=== PATIENT | female | born 1980 | race Caucasian/White ===

== ENCOUNTER 2017-03-25 12:08 | Emergency (ER) | payer OTHER | END 2017-03-25 13:57 | disposition left against medical advice (07) | LOC: UCEAST 12:08 | DX: M25.559 Pain in unspecified hip (principal); Z53.21 Procedure and treatment not carried out due to patient leaving prior to being seen by health care provider ==

== ENCOUNTER 2017-04-10 09:52 | Emergency (ER) | payer OTHER ==
[2017-04-10 11:48] VITALS: BP 124/84
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
[2017-04-10] MEDS ORDERED: Ketorolac INJ* 60 MG/2 ML VIAL IM ONE (13:16)
--- NOTE | 2017-04-10 13:40 | RAD ---
INDICATION: Chronic back pain. COMPARISON: Comparison is made with a prior study from November 06, 2016. TECHNIQUE: 5 views of the lumbar spine were obtained including lateral, oblique, AP and a coned-down lateral view of the lumbar sacral junction. FINDINGS: The vertebra are in normal alignment. No fracture is seen. Disc spaces appear maintained. There are calcific densities which project over the lower pole of the left kidney measuring up to 4 mm in size suspicious for renal calculi. IMPRESSION: 1. NEGATIVE EXAM OF THE LUMBAR SPINE. 2. PROBABLE SMALL LEFT RENAL CALCULI.
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
== END 2017-04-10 14:32 | disposition home or self-care (01) ==
LOC: UCEAST 09:52
DX: M16.11 Unilateral primary osteoarthritis, right hip (principal); S39.012S Strain of muscle, fascia and tendon of lower back, sequela; X58.XXXS Exposure to other specified factors, sequela; Z87.891 Personal history of nicotine dependence
CPT/HCPCS: 72110; 96372; 99212; G0463; J1885

== ENCOUNTER 2017-08-21 17:59 | Emergency (ER) | payer OTHER ==
[2017-08-21 18:36] VITALS: BP 140/75
[2017-08-21] MEDS ORDERED: Ketorolac INJ* 60 MG/2 ML VIAL IM ONE (20:06)
--- NOTE | 2017-08-21 21:00 | RAD ---
Indication: Left rib pain. 3 views of left ribs as well as dual energy PA views of the chest demonstrate no fracture. No evidence of pneumothorax is noted. No alveolar consolidation is noted. No pleural fluid is identified. IMPRESSION: No fracture of the left ribs is noted. No pneumothorax is noted.
--- NOTE | 2017-08-21 22:10 | UC ---
Truncal Trauma HPI - HPI Summary HPI Summary: 1) LEFT LOWER RIB PAIN FOR THREE DAYS. NO BRUISING, NO SOB. NO KNOWN INJURY. NO RADIATION. 2) WHILE WAITING IN WAITING ROOM, MIGRAINE FLAIRED UP. - History Of Current Complaint Chief Complaint: UCRespiratory Stated Complaint: RIB PAIN Time Seen by Provider: 08/21/17 19:48 Hx Obtained From: Patient Hx Last Menstrual Period: IMPLANON Onset/Duration: Gradual Onset, Lasting Days, Still Present Severity Initially: Mild Severity Currently: Mild Pain Intensity: 3 Pain Scale Used: 0-10 Numeric Mechanism Of Injury: Unknown Aggravating Factor(s): Movement, Deep Breathing, Cough Alleviating factor(s): Nothing Associated Signs And Symptoms: Positive: Negative - Allergies/Home Medications Allergies/Adverse Reactions: Allergies Allergy/AdvReac Type Severity Reaction Status Date / Time No Known Allergies Allergy Verified 08/21/17 18:36 PMH/Surg Hx/FS Hx/Imm Hx Previously Healthy: Yes - Surgical History Surgical History: Yes Surgery Procedure, Year, and Place: x 2 - Family History Known Family History: Positive: Hypertension Negative: Renal Disease - Social History Occupation: Employed Full-time Lives: With Family Alcohol Use: Rare Substance Use Type: None Smoking Status (MU): Former Smoker Type: Cigarettes Amount Used/How Often: 1/2 PPD Length of Time of Smoking/Using Tobacco: 17 YEARS Have You Smoked in the Last Year: No When Did the Patient Quit Smoking/Using Tobacco: 2013 Cessation Counseling: Patient Advised to Stop - Immunization History Most Recent Influenza Vaccination: a few years ago Most Recent Tetanus Shot: UTD Review of Systems Constitutional: Negative Skin: Negative Eyes: Negative ENT: Negative Respiratory: Negative Cardiovascular: Negative Gastrointestinal: Negative Genitourinary: Negative Motor: Negative Neurovascular: Negative Musculoskeletal: Myalgia - LEFT ANTERIOR INFERIOR RIB PAIN; NO ABDOMINAL PAIN Neurological: Negative Psychological: Negative Is Patient Immunocompromised?: No All Other Systems Reviewed And Are Negative: Yes Physical Exam Triage Information Reviewed: Yes Appearance: Well-Appearing, No Pain Distress, Well-Nourished Vital Signs: Initial Vital Signs Temp 97.4 F 08/21/17 18:33 Pulse 87 08/21/17 18:33 Resp 16 08/21/17 18:33 BP 140/75 08/21/17 18:33 Pulse Ox 98 08/21/17 18:33 Vital Signs Reviewed: Yes Eye Exam: Normal ENT Exam: Normal Dental Exam: Normal Neck exam: Normal Neck: Positive: Supple, Nontender, No Lymphadenopathy Respiratory: Positive: Lungs clear, Normal breath sounds, No respiratory distress, No accessory muscle use. Negative: Chest non-tender - LEFT ANTERIOR INFERIOR RIBS TENDER WITH MOVEMENT Cardiovascular Exam: Normal Cardiovascular: Positive: RRR, No Murmur, Pulses Normal, Brisk Capillary Refill Abdominal Exam: Normal Abdomen Description: Positive: Nontender, No Organomegaly, Soft Musculoskeletal: Positive: Strength Intact, ROM Intact, No Edema, Other: - LEFT ANTERIOR INFERIOR RIBS TENDER WITH MOVEMENT Neurological Exam: Normal Psychological Exam: Normal Skin Exam: Normal Truncal Trauma Course/Dx - Course Course Of Treatment: PATEINT ADVISED TO SEEK IMMEDIATE CARE FROM EMERGENCY DEPARTMENT IF CONDITION FAILS TO IMPROVE, OR IF NEW SYMPTOMS DEVELOP - Differential Dx/Diagnosis Differential Diagnosis/HQI/PQRI: Chest Wall Contusion, Spleen Trauma, Rib Fracture, Other - PLEURISY Provider Diagnoses: LEFT ANTERIOR INFERIOR RIBS MUSCLE STRAIN/SPRAIN Discharge - Discharge Plan Condition: Stable Disposition: HOME Patient Education Materials: Migraine Headache (ED), Rib Contusion (ED) Referrals: Bebo Land MD [Primary Care Provider] - Additional Instructions: IF SYMPTOMS REMAIN, CHANGE OR WORSEN PLEASE SEEK PROMPT EVALUATION AT EMERGENCY DEPARTMENT.
== END 2017-08-21 21:21 | disposition home or self-care (01) ==
LOC: UCEAST 17:59
DX: S39.011A Strain of muscle, fascia and tendon of abdomen, initial encounter (principal); Z87.891 Personal history of nicotine dependence; X58.XXXA Exposure to other specified factors, initial encounter; Y92.9 Unspecified place or not applicable
CPT/HCPCS: 96372; 99212; G0463; J1885

== ENCOUNTER 2017-12-19 12:36 | Emergency (ER) | payer OTHER ==
[2017-12-19 13:30] VITALS: BP 122/82
--- NOTE | 2017-12-19 14:00 | UC ---
Back Pain HPI - HPI Summary HPI Summary: Patient presents with complaints of chronic right hip and lower back pain. She was recently seen by Dr. Bliss who RX dilaudid for her pain. She is waiting for prior approval and did not get the medication. She is scheduled to see his again next week. She denies any recent injury, trauma, or new activity that would explain the increase in her pain. She denies incontinence of bowel or bladder, or saddle parasthsia. - History of Current Complaint Chief Complaint: UCBackPain Stated Complaint: HIP AND BACK PAIN Time Seen by Provider: 12/19/17 13:39 Hx Obtained From: Patient Hx Last Menstrual Period: now Onset/Duration: Other - lasting years Timing: Constant Pain Intensity: 7 Character: Aching Aggravating Factor(s): Movement, Lifting, Bending, Walking, Cough Alleviating Factor(s): Nothing Associated Signs And Symptoms: Positive: Negative - Risk Factors AAA Risk Factors: Negative Cauda Equina Risk Factors: Negative Epidural Abscess Risk Factors: Negative - Allergies/Home Medications Allergies/Adverse Reactions: Allergies Allergy/AdvReac Type Severity Reaction Status Date / Time No Known Allergies Allergy Verified 12/19/17 13:31 Home Medications: Home Medications Bupropion XL* [Wellbutrin XL *] 1 tab PO DAILY 12/19/17 [History Confirmed 12/19] Cholecalciferol CAP/TAB(NF) [Vitamin D3 CAP/TAB (NF)] 1 tab PO DAILY 12/19/17 [ History Confirmed 12/19/17] PMH/Surg Hx/FS Hx/Imm Hx Previously Healthy: Yes - Surgical History Surgical History: Yes Surgery Procedure, Year, and Place: x 2 - Family History Known Family History: Positive: Hypertension Negative: Renal Disease - Social History Lives: Alone Alcohol Use: Rare Substance Use Type: None Smoking Status (MU): Former Smoker Type: Cigarettes Amount Used/How Often: 1/2 PPD Length of Time of Smoking/Using Tobacco: 17 YEARS Have You Smoked in the Last Year: No When Did the Patient Quit Smoking/Using Tobacco: 2013 - Immunization History Most Recent Influenza Vaccination: a few years ago Most Recent Tetanus Shot: UTD Review of Systems Constitutional: Negative Skin: Negative Eyes: Negative ENT: Negative Respiratory: Negative Cardiovascular: Negative Gastrointestinal: Negative Genitourinary: Negative Motor: Negative Neurovascular: Negative Musculoskeletal: Myalgia Neurological: Negative Psychological: Negative Is Patient Immunocompromised?: No All Other Systems Reviewed And Are Negative: Yes Physical Exam Triage Information Reviewed: Yes Appearance: Well-Appearing Vital Signs: Initial Vital Signs Temp 96.7 F 12/19/17 13:26 Pulse 81 12/19/17 13:26 Resp 12 12/19/17 13:26 BP 122/82 12/19/17 13:26 Pulse Ox 99 12/19/17 13:26 Vital Signs Reviewed: Yes Eye Exam: Normal ENT Exam: Normal Neck exam: Normal Neck: Positive: 1 Respiratory Exam: Normal Cardiovascular Exam: Normal Abdominal Exam: Normal Musculoskeletal Exam: Normal - palpable pain of the right greater trochanter processess, and right lower lateral lumbar musculature. patellar reflexes 2+ and brisk, negative straight leg raise. gait heel-toe. neuro, no deficits. Neurological Exam: Normal Psychological Exam: Normal Skin Exam: Normal Back Pain Course/Dx - Course Course Of Treatment: Patient presents with history of chronic back pain, she has had no recent injury or trauma, she has been seen by Dr. Bliss and was RX dilaudid. She didnt realize that she could purchase her medications. With no new clinical features concerning for cauda equina syndrome. She was otherwise stable and appropriate for outpatient follow. - Differential Dx/Diagnosis Differential Diagnosis/HQI/PQRI: Other - chronic back pain Provider Diagnoses: chronic back pain Discharge - Discharge Plan Condition: Stable Disposition: HOME Patient Education Materials: Chronic Back Pain (ED) Referrals: Bebo Land MD [Primary Care Provider] - Rashad Bliss DO [Doctor of Osteopathy] - Additional Instructions: You RX is at the pharmacy for hydromorphone at the [facility].
== END 2017-12-19 13:55 | disposition home or self-care (01) ==
LOC: UCEAST 12:36
DX: M54.9 Dorsalgia, unspecified (principal); G89.29 Other chronic pain; Z87.891 Personal history of nicotine dependence
CPT/HCPCS: 99211; G0463

== ENCOUNTER 2018-06-28 20:55 | Emergency (ER) | payer OTHER ==
[2018-06-28 21:15] VITALS: BP 123/84
[2018-06-28] MEDS ORDERED: Amoxicillin PO (*) 500 MG CAP PO ONE (22:08)
--- NOTE | 2018-06-28 22:18 | UC ---
Throat Pain/Nasal Tung HPI - HPI Summary HPI Summary: Patient is a 38-year-old female presenting to the with sore throat. She endorses 2 days of sore throat and bilateral lymphadenopathy. She recently returned from [place] and states she began to feel ill immediately if on arrival. She denies any fevers, sweats, chills. Endorses addendum patient, but denies dysphagia. She continues to eat and drink okay. She denies any other symptoms at this time. She endorses erythema and white spots to her tonsils. History of strep throat. - History of Current Complaint Chief Complaint: UCRespiratory Stated Complaint: SORE THROAT Time Seen by Provider: 06/28/18 21:57 Hx Obtained From: Patient Hx Last Menstrual Period: 06/04/18 ?: No Onset/Duration: Sudden Onset Severity: Moderate Pain Intensity: 6 Pain Scale Used: 0-10 Numeric Associated Signs & Symptoms: Negative: Dysphagia, FB Sensation, Drooling, Wheezing, Hoarseness, Sinus Discomfort - Epiglottits Risk Factors Epiglottis Risk Factors: Negative - Allergies/Home Medications Allergies/Adverse Reactions: Allergies Allergy/AdvReac Type Severity Reaction Status Date / Time No Known Allergies Allergy Verified 06/28/18 21:15 Home Medications: Home Medications Oxycodone HCl 5 mg PO TID PRN 06/28/18 [History Confirmed 06/28/18] PMH/Surg Hx/FS Hx/Imm Hx Previously Healthy: Yes - Surgical History Surgical History: Yes Surgery Procedure, Year, and Place: x 2 - Family History Known Family History: Positive: Hypertension Negative: Renal Disease - Social History Occupation: Employed Full-time Lives: With Family Alcohol Use: Rare Substance Use Type: None Smoking Status (MU): Former Smoker Type: Cigarettes Amount Used/How Often: 1/2 PPD Length of Time of Smoking/Using Tobacco: 17 YEARS Have You Smoked in the Last Year: No When Did the Patient Quit Smoking/Using Tobacco: 2013 - Immunization History Most Recent Influenza Vaccination: a few years ago Most Recent Tetanus Shot: UTD Review of Systems Constitutional: Negative Skin: Negative ENT: Sore Throat Respiratory: Negative Cardiovascular: Negative Motor: Negative Neurovascular: Negative Neurological: Negative Is Patient Immunocompromised?: No All Other Systems Reviewed And Are Negative: Yes Physical Exam Triage Information Reviewed: Yes Appearance: Well-Appearing, No Pain Distress, Well-Nourished Vital Signs: Initial Vital Signs Temp 98.1 F 06/28/18 21:10 Pulse 105 06/28/18 21:10 Resp 16 06/28/18 21:10 BP 123/84 06/28/18 21:10 Pulse Ox 99 06/28/18 21:10 Vital Signs Reviewed: Yes Eye Exam: Normal ENT: Positive: Pharyngeal erythema, Tonsillar exudate. Negative: Tonsillar swelling Neck exam: Normal Neck: Positive: Supple Respiratory Exam: Normal Respiratory: Positive: Chest non-tender, Lungs clear Cardiovascular Exam: Normal Cardiovascular: Positive: RRR Musculoskeletal Exam: Normal Musculoskeletal: Positive: Strength Intact Neurological: Positive: Alert Psychological: Positive: Normal Response To Family, Age Appropriate Behavior Skin Exam: Normal Throat Pain/Nasal Course/Dx - Course Course Of Treatment: During the course treatment, the patient's evaluated for sore throat and bilateral lymphadenopathy. She denies any fevers, sweats, chills. History of strep throat. On physical examination, there is erythema with tonsillar exudates. Vital signs are stable. Strep throat positive. She is given amoxicillin 500 mg in the UC and prescribed this medication. Encouraged ibuprofen. - Differential Dx/Diagnosis Provider Diagnoses: Strep throat Discharge - Sign-Out/Discharge Documenting (check all that apply): Patient Departure All imaging exams completed and their final reports reviewed: No Studies - Discharge Plan Condition: Stable Disposition: HOME Prescriptions: Amoxicillin PO (*) [Amoxicillin 500 MG CAP*] 500 mg PO Q12H #20 cap Patient Education Materials: Strep Throat (ED) Referrals: Bebo Land MD [Primary Care Provider] - Additional Instructions: Cepacol Ibuprofen 600mg three times daily - Billing Disposition and Condition Condition: STABLE Disposition: Home
== END 2018-06-28 22:25 | disposition home or self-care (01) ==
LOC: UCEAST 20:55
DX: J02.0 Streptococcal pharyngitis (principal); Z87.891 Personal history of nicotine dependence
CPT/HCPCS: 87651; 99212; A9270-GY; G0463

== ENCOUNTER 2024-01-10 01:56 | Inpatient (IN) ==
[2024-01-10] MEDS: Morphine 4 MG/ML VIAL (1 ml) IV ONE (04:13)
[2024-01-10] MEDS: Lactated Ringers 1000 ml BAG 1,000 ML IV ONE (04:13)
[2024-01-10] MEDS: Ondansetron 4 mg VIAL 2 MG/ML 2 ml VIAL IV ONE (04:16)
[2024-01-10 04:51] LABS: Hematocrit 39.4 % (35-45); Hemoglobin 13.3 g/dL (11.5-14.3); Mean Corpuscular Hemoglobin 29.1 pg (27-33); Mean Corpuscular Hgb Conc 33.9 g/dL (31-36); Mean Corpuscular Volume 85.9 fL (80-97); Mean Platelet Volume 8.3 fL (7.5-11.2); Platelet Count 308 10^3/uL (150-450); Red Blood Count 4.58 10^6/uL (3.63-4.92); Red Cell Distribution Width 14.9 % (12-17); White Blood Count 14.3 10^3/uL (3.8-11.8)
[2024-01-10 05:05] LABS: ABS Lymphocytes 0.5 10^3/uL (1.0-4.8); ABS Monocytes 0.3 10^3/uL (0.0-0.9); ABS Neutrophils 13.5 10^3/uL (1.5-7.6); Lymphocyte % 3.3 %; RBC Morphology Normal (Normal)
[2024-01-10 05:12] LABS: ALT 24 U/L (7-52); AST 66 U/L (13-39); Albumin 5.6 g/dL (3.2-5.2); Albumin/Globulin Ratio 1.7 (1-3); Alkaline Phosphatase 58 U/L (35-149); Anion Gap 6 mmol/L (2-16); Blood Urea Nitrogen 7 mg/dL (6-24); C Reactive Protein 8.73 mg/L (<8.01); CO2 Carbon Dioxide 22 mmol/L (22-32); Calcium 9.2 mg/dL (8.6-10.3); Chloride 100 mmol/L (101-111); Creatinine, Serum 0.69 mg/dL (0.51-0.95); Globulin 3.3 g/dL (2-4); Glucose 126 mg/dL (70-100); Lipase 10 U/L (11.0-82.0); Potassium > 10.0 mmol/L (3.5-5.0); Sodium 128 mmol/L (135-145); Total Bilirubin 0.6 mg/dL (0.2-1.0); Total Protein 8.9 g/dL (6.4-8.9); eGFR CKD-EPI 109.7 (>60)
[2024-01-10 05:56] LABS: Urine Appearance Turbid; Urine Bilirubin Negative (Negative); Urine Blood Negative (Negative); Urine Color Light-Yellow; Urine Glucose Negative (Negative); Urine Ketones 1+ (Negative); Urine Nitrite Negative (Negative); Urine Protein Negative (Negative); Urine Specific Gravity 1.008 (1.002-1.030); Urine Urobilinogen Negative (Negative); Urine pH 6.5 (5.0-8.0)
[2024-01-10 06:09] LABS: Urine Bacteria 1+ /HPF (Absent); Urine Red Blood Cell Trace(0-2/hpf) /HPF (0-Trace); Urine Squamous Epithelial Cell Present /HPF (Absent); Urine White Blood Cell 2+(11-20/hpf) /HPF (0-Trace)
[2024-01-10 06:30] LABS: Anion Gap 6 mmol/L (2-16); Blood Urea Nitrogen 6 mg/dL (6-24); CO2 Carbon Dioxide 24 mmol/L (22-32); Calcium 8.9 mg/dL (8.6-10.3); Chloride 104 mmol/L (101-111); Creatinine, Serum 0.55 mg/dL (0.51-0.95); Glucose 128 mg/dL (70-100); Sodium 134 mmol/L (135-145); eGFR CKD-EPI 115.8 (>60)
[2024-01-10] MEDS: Iohexol 300 (CONTRAST) 10 ML SDV IV ONE (06:55)
[2024-01-10] MEDS: Morphine 4 MG/ML VIAL (1 ml) IV PRN (07:52)
[2024-01-10] MEDS ORDERED: Rocuronium 50 mg VIAL 10 mg/ml 5 ml VIAL (50 mg) ONE (08:01)
[2024-01-10] MEDS ORDERED: Midazolam 2 mg/2 ml VIAL 1 mg/ml 2 ml VIAL (2 mg) ONE (08:01)
[2024-01-10] MEDS ORDERED: fentaNYL 100 mcg/2 ml 50 MCG/ML VIAL ONE ×2 (08:01→12:27)
[2024-01-10] MEDS ORDERED: Propofol 10 MG/ML 20 ML BTL ONE (08:07)
[2024-01-10] MEDS ORDERED: Lidocaine 2% PF 5 ML VIAL ONE (08:07)
[2024-01-10] MEDS ORDERED: ceFAZolin 2 GM in NS PREMIX 2 GM/100 ML BAG IVPB ONE (08:44)
[2024-01-10] MEDS ORDERED: Phenylephrine 40 mcg/mL 10mL (400mcg) SYRINGE ONE (09:35)
[2024-01-10] MEDS ORDERED: Ondansetron 4 mg VIAL 2 MG/ML 2 ml VIAL IV PRN (09:37)
[2024-01-10] MEDS ORDERED: Naloxone 0.4 mg VIAL 0.4 mg/ml 1 ml VIAL IV PRN (09:37)
[2024-01-10] MEDS ORDERED: Dexamethasone IV 4 MG/ML VIAL 1 ml VIAL ONE (09:47)
[2024-01-10] MEDS ORDERED: Acetaminophen IV 1 GM/100ML 1,000 MG/100 ML BAG IV ONE (09:51)
[2024-01-10] MEDS ORDERED: HYDROmorphone 0.5 MG/0.5 ML SYRINGE ONE ×2 (10:39→11:29)
[2024-01-10] MEDS ORDERED: Bupivacaine 0.5% SDV PF 30ML VIAL ONE (11:20)
[2024-01-10] MEDS ORDERED: HYDROmorphone 1 MG/1 ML SYRINGE ONE (11:46)
[2024-01-10] MEDS: HYDROmorphone 1 MG/1 ML SYRINGE IV PRN (11:50)
[2024-01-10] MEDS: fentaNYL 100 mcg/2 ml 50 MCG/ML VIAL IV PRN (12:35)
[2024-01-10] MEDS: HYDROmorphone 1 MG/1 ML SYRINGE IV SLOW PU PRN (15:52)
[2024-01-10] MEDS: Ondansetron 4 mg VIAL 2 MG/ML 2 ml VIAL IV PRN (16:06)
[2024-01-10] MEDS: Lactated Ringers 1000 ml BAG 1,000 ML IV SCH (16:50)
[2024-01-10] MEDS: hydrALAZINE 20 mg/ml 1 ML Vial IV IV SLOW PU PRN (16:51)
[2024-01-10] MEDS: oxyCODONE/Acetamin 5/325 mg TAB PO PRN (20:31)
[2024-01-11 07:02] LABS: Calcium 8.6 mg/dL (8.6-10.3); Creatinine, Serum 0.62 mg/dL (0.51-0.95); Potassium 3.9 mmol/L (3.5-5.0); eGFR CKD-EPI 112.5 (>60)
[2024-01-11 07:48] LABS: ABS Lymphocytes 0.6 10^3/uL (1.0-4.8); ABS Monocytes 0.5 10^3/uL (0.0-0.9); ABS Neutrophils 8.5 10^3/uL (1.5-7.6); Hematocrit 34.4 % (35-45); Hemoglobin 11.4 g/dL (11.5-14.3); Lymphocyte % 6.3 %; Mean Corpuscular Hemoglobin 29.3 pg (27-33); Mean Corpuscular Hgb Conc 33.1 g/dL (31-36); Mean Corpuscular Volume 88.5 fL (80-97); Mean Platelet Volume 8.6 fL (7.5-11.2); Platelet Count 225 10^3/uL (150-450); Red Blood Count 3.88 10^6/uL (3.63-4.92); Red Cell Distribution Width 14.5 % (12-17); White Blood Count 9.6 10^3/uL (3.8-11.8)
[2024-01-11] MEDS: Enoxaparin 40 MG/0.4 ML SYR SUBCUT SCH (09:44)
[2024-01-11] MEDS ORDERED: oxyCODONE/Acetamin 10/325(NF) TAB PO PRN (11:08)
[2024-01-11] MEDS: oxyCODONE/Acetamin 5/325 mg TAB PO PRN (22:23)
[2024-01-12 06:11] LABS: ABS Lymphocytes 0.6 10^3/uL (1.0-4.8); ABS Monocytes 0.4 10^3/uL (0.0-0.9); ABS Neutrophils 7.3 10^3/uL (1.5-7.6); ABS Nucleated RBC 0.01 10^3/ul; Eosinophil % 0.1 %; Hematocrit 29.9 % (35-45); Hemoglobin 10.1 g/dL (11.5-14.3); Lymphocyte % 6.8 %; Mean Corpuscular Hemoglobin 29.5 pg (27-33); Mean Corpuscular Hgb Conc 33.8 g/dL (31-36); Mean Corpuscular Volume 87.2 fL (80-97); Mean Platelet Volume 8.2 fL (7.5-11.2); Nucleated Red Blood Cells % 0.1 %/100WBC (0.0-0.8); Platelet Count 186 10^3/uL (150-450); Red Blood Count 3.43 10^6/uL (3.63-4.92); Red Cell Distribution Width 14.4 % (12-17); White Blood Count 8.3 10^3/uL (3.8-11.8)
[2024-01-12 06:29] LABS: Calcium 8.3 mg/dL (8.6-10.3); Creatinine, Serum 0.56 mg/dL (0.51-0.95); Potassium 2.9 mmol/L (3.5-5.0); eGFR CKD-EPI 115.3 (>60)
[2024-01-12] MEDS: Potassium Chlor 20 meq TAB.ER PO SCH (19:47)
[2024-01-13] MEDS: Calcium Carb (TUMS) 500 mg CHEW TAB PO PRN (00:37)
[2024-01-13 09:01] LABS: Calcium 9.7 mg/dL (8.6-10.3); Creatinine, Serum 1.37 mg/dL (0.51-0.95); eGFR CKD-EPI 48.8 (>60)
[2024-01-13] MEDS: Lactated Ringers 1000 ml BAG 1,000 ML IV ONE (10:32)
[2024-01-13] MEDS: KCL 20 MEQ/100 ML IVPREMIX 20 MEQ/100 ML BAG IV ONE (10:36)
[2024-01-13] MEDS: D5W 1/2 NS KCl 20 meq 1000 ml 1,000 ML IV SCH (10:45)
[2024-01-13] MEDS: Methylnaltrexone SQ (NF) 12 MG/0.6 ML VIAL SUBCUT SCH (12:20)
[2024-01-13] MEDS: Pantoprazole VIAL 40 MG VIAL IV SCH (20:51)
[2024-01-14 06:51] LABS: Calcium 8.8 mg/dL (8.6-10.3); Creatinine, Serum 0.77 mg/dL (0.51-0.95); Potassium 3.4 mmol/L (3.5-5.0); eGFR CKD-EPI 97.5 (>60)
[2024-01-14] MEDS: Methylnaltrexone SQ (NF) 12 MG/0.6 ML VIAL SUBCUT SCH (10:58)
[2024-01-14] MEDS: D5W 1/2 NS KCl 20 meq 1000 ml 1,000 ML IV SCH (12:32)
[2024-01-15 09:59] LABS: ABS Lymphocytes 0.6 10^3/uL (1.0-4.8); ABS Monocytes 0.9 10^3/uL (0.0-0.9); ABS Neutrophils 7.7 10^3/uL (1.5-7.6); ABS Nucleated RBC 0.01 10^3/ul; Eosinophil % 0.2 %; Hematocrit 33.2 % (35-45); Hemoglobin 11.3 g/dL (11.5-14.3); Lymphocyte % 6.1 %; Mean Corpuscular Hemoglobin 29.3 pg (27-33); Mean Corpuscular Volume 86.3 fL (80-97); Mean Platelet Volume 7.9 fL (7.5-11.2); Nucleated Red Blood Cells % 0.1 %/100WBC (0.0-0.8); Platelet Count 270 10^3/uL (150-450); Red Blood Count 3.85 10^6/uL (3.63-4.92); Red Cell Distribution Width 14.3 % (12-17); White Blood Count 9.2 10^3/uL (3.8-11.8)
[2024-01-15 10:40] LABS: Calcium 8.6 mg/dL (8.6-10.3); Creatinine, Serum 0.55 mg/dL (0.51-0.95); Potassium 3.3 mmol/L (3.5-5.0); eGFR CKD-EPI 115.8 (>60)
[2024-01-15] MEDS: KCL 20 MEQ/100 ML IVPREMIX 20 MEQ/100 ML BAG IV SCH (15:43)
[2024-01-16 05:52] LABS: Calcium 7.9 mg/dL (8.6-10.3); Creatinine, Serum 0.46 mg/dL (0.51-0.95); Potassium 3.5 mmol/L (3.5-5.0); eGFR CKD-EPI 120.9 (>60)
[2024-01-16 08:45] LABS: Magnesium 1.5 mg/dL (1.9-2.7)
[2024-01-16] MEDS: KCL 20 MEQ/100 ML IVPREMIX 20 MEQ/100 ML BAG IV SCH (12:39)
[2024-01-16] MEDS: Magnesium Sulfate 2 gm BAG 2 GM/50 ML BAG IVPB ONE (13:12)
[2024-01-17 05:20] LABS: Hematocrit 30.8 % (35-45); Hemoglobin 10.4 g/dL (11.5-14.3); Mean Corpuscular Hemoglobin 29.5 pg (27-33); Mean Corpuscular Hgb Conc 33.9 g/dL (31-36); Mean Platelet Volume 7.9 fL (7.5-11.2); Platelet Count 324 10^3/uL (150-450); Red Blood Count 3.54 10^6/uL (3.63-4.92); Red Cell Distribution Width 14.6 % (12-17); White Blood Count 9.2 10^3/uL (3.8-11.8)
[2024-01-17 05:43] LABS: Calcium 7.6 mg/dL (8.6-10.3); Creatinine, Serum 0.41 mg/dL (0.51-0.95); Magnesium 1.8 mg/dL (1.9-2.7); Potassium 3.2 mmol/L (3.5-5.0); eGFR CKD-EPI 124.3 (>60)
[2024-01-18] MEDS: HYDROmorphone 1 MG/1 ML SYRINGE IV SLOW PU PRN (15:26)
[2024-01-19 11:15] LABS: Calcium 8.5 mg/dL (8.6-10.3); Creatinine, Serum 0.5 mg/dL (0.51-0.95); Potassium 3.4 mmol/L (3.5-5.0); eGFR CKD-EPI 118.5 (>60)
[2024-01-20 08:13] LABS: Hematocrit 30.6 % (35-45); Hemoglobin 10.2 g/dL (11.5-14.3); Mean Corpuscular Hemoglobin 28.8 pg (27-33); Mean Corpuscular Hgb Conc 33.5 g/dL (31-36); Mean Corpuscular Volume 86.1 fL (80-97); Mean Platelet Volume 7.9 fL (7.5-11.2); Platelet Count 536 10^3/uL (150-450); Red Blood Count 3.55 10^6/uL (3.63-4.92); Red Cell Distribution Width 14.4 % (12-17); White Blood Count 13.8 10^3/uL (3.8-11.8)
[2024-01-20 08:33] LABS: Calcium 7.9 mg/dL (8.6-10.3); Creatinine, Serum 0.47 mg/dL (0.51-0.95); Potassium 3.4 mmol/L (3.5-5.0); eGFR CKD-EPI 120.3 (>60)
[2024-01-20 11:37] LABS: ABS Basophils 0.1 10^3/uL (0.0-0.1); ABS Eosinophils 0.1 10^3/uL (0.0-0.5); ABS Lymphocytes 1.5 10^3/uL (1.0-4.8); ABS Monocytes 1.1 10^3/uL (0.0-0.9); ABS Neutrophils 11.1 10^3/uL (1.5-7.6); Eosinophil % 0.6 %; Lymphocyte % 10.6 %
[2024-01-20] MEDS: Iohexol 300 (CONTRAST) 10 ML SDV IV ONE (15:23)
[2024-01-21 06:15] LABS: Hematocrit 30.4 % (35-45); Hemoglobin 9.9 g/dL (11.5-14.3); Mean Corpuscular Hemoglobin 28.3 pg (27-33); Mean Corpuscular Hgb Conc 32.5 g/dL (31-36); Mean Corpuscular Volume 86.9 fL (80-97); Mean Platelet Volume 7.8 fL (7.5-11.2); Platelet Count 560 10^3/uL (150-450); Red Cell Distribution Width 14.8 % (12-17); White Blood Count 14.2 10^3/uL (3.8-11.8)
[2024-01-21 06:38] LABS: Calcium 7.8 mg/dL (8.6-10.3); Creatinine, Serum 0.48 mg/dL (0.51-0.95); Potassium 3.2 mmol/L (3.5-5.0); eGFR CKD-EPI 119.7 (>60)
[2024-01-21 07:08] LABS: ABS Eosinophils 0.1 10^3/uL (0.0-0.5); ABS Lymphocytes 1.4 10^3/uL (1.0-4.8); ABS Monocytes 1.2 10^3/uL (0.0-0.9); ABS Neutrophils 11.5 10^3/uL (1.5-7.6); ABS Nucleated RBC 0.01 10^3/ul; Eosinophil % 0.8 %; Lymphocyte % 10.1 %
[2024-01-21 09:42] LABS: Magnesium 1.7 mg/dL (1.9-2.7)
[2024-01-21] MEDS: Potassium Chlor 20 meq TAB.ER PO ONE (12:55)
[2024-01-22 14:34] VITALS: BP 116/62
== END 2024-01-22 15:30 | disposition home or self-care (01) | DRG 221 ==
LOC: ED 01:56 → EDHOLD 08:24 → SSU 08:33 → AA 12:23 → SSU 14:28
PROVIDERS: ADMIT Surgery; ATTEND Surgery